=== PATIENT | female | born 1945 | race Caucasian/White ===

== ENCOUNTER 2018-09-12 11:47 | Day surgery (SDC) | payer MEDICARE, OTHER, SELFPAY ==
--- NOTE | 2018-09-12 | PATH_ITS ---
[facility] Accession Number: [id number] . 01 Material submitted: . PART A: RIGHT COLON BIOPSY PART B: TRANSVERSE COLON BIOPSY PART C: LEFT COLON BIOPSY PART D: 15CM COLON BIOPSY . 01 Clinical history: . D: RULE OUT ADENOMA . 02 Diagnosis: A, B, C. Biopsies, Right Colon, Transverse Colon, and Left Colon: Multiple fragments of normal appearing colon mucosa present in all three specimens. Negative for significant architectural distortion. Negative for significant inflammation, dysplasia and malignancy. . D. Biopsy, Colon at 15 cm: Three fragments of colon mucosa associated with prominent mucosal lymphoid aggregates. Negative for dysplasia and malignancy. [facility]/09/13/2018 . 02 Electronically signed: . Tyler Ortiz MD, Pathologist NPI- [id number] . 01 Gross description: . Received four formalin-filled containers, each labeled with the patient's name: . A. In a container labeled RT colon, are multiple less than 0.1 cm to 0.3 cm portions of tissue, which are filtered, wrapped, and entirely submitted in cassette A. B. In a container labeled transverse col, are three 0.2-0.4 cm portions of tissue, entirely submitted in cassette B. C. In a container labeled LT colon, are multiple 0.1-0.4 cm portions of tissue, which are filtered, wrapped, and entirely submitted in cassette C. D. In a container labeled 15 cm col, are three 0.1-0.3 cm portions of tissue, entirely submitted in cassette D. ([id number]) /FRR . 02 Pathologist provided ICD-10: R19.7 . 02 CPT . 778405, 296387, 192092, 094144 Performed at: 01 [facility] [address] [place] [address], [place], [place] [id number] MD Karthik Arreguin MD Phone: [phone] Performed at: 02 [facility] [address] [address] [place], [place] [id number] MD Griselda Ibrahim MD Phone: [phone]
[2018-09-12 12:38] VITALS: BP 158/91; PULSE 69; RESP 16; TEMP 36.7; O2SAT 97; BMI 28.2
[2018-09-12] MEDS: SODIUM CHLORIDE 0.9% 1,000 ML 42 ML IV (12:55)
--- NOTE | 2018-09-12 13:00 | PM.HP.1 ---
History of Present Illness Date Patient Seen: 09/12/18 Time Patient Seen: 13:00 Chief complaint: [id number] COLONOSCOPY W/POSS BX Narrative: History of ulcerative colitis Patient History Medical History Chronic GERD (Acute) Ulcerative colitis (Acute) Family & Social History Social History: household members spouse Meds Home Medications Medication Instructions Recorded Confirmed Type conjugated estrogens [Premarin] 0.45 mg PO DAILY 09/12/18 09/12/18 History mesalamine [Lialda] 4.8 mg PO 09/12/18 History omeprazole 20 mg PO DAILY 09/12/18 09/12/18 History Allergies Allergy/AdvReac Type Severity Reaction Status Date / Time Penicillins Allergy Mild Verified 09/12/18 12:56 Exam Vital Signs (past 8 hours): - 09/12/18 12:38 Temperature 98.1 F Pulse Rate 69 Respiratory Rate 16 Blood Pressure 158/91 H Pulse Oximetry 97 Oxygen Delivery Method Room Air Narrative Exam Narrative: Oropharynx free of lesions Chest clear to auscultation percussion Cardiac exam reveals no S3 or murmur Assessment & Plan Plan: Assessment/Plan Narrative: History of ulcerative colitis need for follow-up colonoscopy with surveillance biopsies. Risks, benefits, alternatives have been explained.
--- NOTE | 2018-09-12 13:02 | P.OP.ENDO_ITS ---
Operative Date/Time/Diagnoses Date of procedure: 09/12/18 Time of procedure: 13:02 Pre-op diagnosis: See indication and findings Procedure & Clinicians Study performed: Colonoscopy Same procedure as scheduled: Yes Indications: History of ulcerative colitis Surgeon: Cheyenne Wolff Procedure Notes Procedure in detail: After informed consent was obtained the patient was placed in left lateral decubitus position. The video colonoscope was introduced the rectum slowly advanced to the cecum. On slow withdrawal mucosa was carefully examined. Preparation was good. The scope was removed. The patient tolerated procedure well. Blood loss none Complications none Sedation Total sedation time 26 min Findings 1. Generally normal colonic mucosa. Biopsies taken 2/10 cm and placed in right , transverse, and left colon bottles. This is to rule out dysplasia. 2. Extensive sigmoid diverticulosis with some degree of colonic narrowing 3. Mildly nodular mucosa in almost polypoid form no greater than 1 cm at 15 cm. This was biopsied x2 with Jumbo biopsy forceps and mostly resected. I expect this will probably not be an adenomatous polyp. 4. Tattoo present at the patent flexure from previously removed large polyp. We will be in touch with her regarding her biopsies but generally should have follow-up colonoscopy in 2-3 years
[2018-09-12] MEDS: fentaNYL 250 MCG/5 ML INJ IV (13:54)
[2018-09-12] MEDS: MIDAZOLAM 5 MG/5 ML VIAL IV (13:54)
[2018-09-12 14:02] VITALS: BP 124/70; PULSE 61; RESP 16; TEMP 36.4; O2SAT 95
[2018-09-12 14:08] VITALS: BP 127/78; PULSE 72; RESP 20; TEMP 36.5; O2SAT 94
[2018-09-12 14:26] VITALS: BP 125/75; PULSE 65; RESP 15; TEMP 36.4; O2SAT 95
[2018-09-12 14:30] VITALS: BP 117/72; PULSE 68; RESP 16; TEMP 36.6; O2SAT 97
== END 2018-09-12 15:17 | disposition home or self-care (01) ==
PROVIDERS: Visit Provider Internal Medicine Gastroenterology
PROC: 0DJD8ZZ Inspection of Lower Intestinal Tract, Via Natural or Artificial Opening Endoscopic (ICD-10-PCS; CPT 45378; principal; 2018-09-12 13:30)
DX: Z87.19 Personal history of other diseases of the digestive system (principal); K57.30 Diverticulosis of large intestine without perforation or abscess without bleeding; Z86.010 Personal history of colon polyps; K21.9 Gastro-esophageal reflux disease without esophagitis
CPT/HCPCS: 45380; 88305; J2250; J3010

== ENCOUNTER 2019-07-31 10:24 | Day surgery (SDC) | payer MEDICARE, OTHER, SELFPAY ==
[2019-07-31] VITALS (8 sets, daily range): BP systolic 113–143; BP diastolic 75–87; PULSE 68–74; RESP 17–22; TEMP 36.3–36.4; O2SAT 92–99; BMI 27.4
[2019-07-31] MEDS: SODIUM CHLORIDE 0.9% 1,000 ML 42 ML IV (11:04)
--- NOTE | 2019-07-31 11:04 | PM.HP.1 ---
History of Present Illness History of Present Illness Date Patient Seen: 07/31/19 Time Patient Seen: 11:04 Chief complaint: [id number] Narrative: Worsening and uncontrolled GE reflux Patient History Medical History (Updated 07/31/19 @ 11:05 by Cheyenne Wolff MD) Chronic GERD (Acute) Ulcerative colitis (Acute) Family & Social History Social History: household members spouse Meds Home Medications and Allergies Home Medications Medication Instructions Recorded Confirmed Type conjugated estrogens [Premarin] 0.45 mg PO DAILY 09/12/18 09/12/18 History mesalamine [Lialda] 4.8 mg PO 09/12/18 History omeprazole 20 mg PO DAILY 09/12/18 09/12/18 History Allergies Allergy/AdvReac Type Severity Reaction Status Date / Time Penicillins Allergy Mild Verified 07/31/19 10:57 Exam Vital Signs (past 8 hours): - 07/31/19 10:49 Temperature 97.3 F L Pulse Rate 73 Respiratory Rate 20 Blood Pressure 143/87 H Pulse Oximetry 99 Oxygen Delivery Method Room Air Narrative Exam Narrative: Oropharynx free of lesions Chest clear to auscultation percussion Cardiac exam reveals no S3 or murmur Assessment & Plan Assessment & Plan narrative: Worsening and uncontrolled GE reflux. Rule out neoplasia Risks, benefits, alternatives have been explained.
--- NOTE | 2019-07-31 11:06 | PM.OP.ENDO ---
Operative Date/Time/Diagnoses Date of procedure: 07/31/19 Time of procedure: 11:06 Pre-op diagnosis: See indication and findings Procedure & Clinicians Study performed: EGD Same procedure as scheduled: Yes Indications: Worsening GE reflux Surgeon: Cheyenne Wolff Procedure Notes Procedure in detail: After informed consent was obtained the patient was placed in left lateral decubitus position. The video upper scope was placed into the oropharynx with the patient's health swallowed into the esophagus. The esophagus, stomach, and duodenum were carefully examined. On withdrawal, retroflexed view the GE junction was performed. The scope was removed. The patient tolerated procedure well. Blood loss none Complications none Sedation Total sedation time 10 minutes Versed 6 mg fentanyl 100 mg IV titration Findings 1. Normal esophagus 2. Normal stomach 3. Normal duodenum Iln has had worsened symptoms with no esophagitis and nothing more worrisome. We will discuss her being on the lowest dose possible that controls her period moving away from PPIs to H2 blockers would be preferable.
[2019-07-31] MEDS: MIDAZOLAM 5 MG/5 ML VIAL IV (11:46)
[2019-07-31] MEDS: fentaNYL 250 MCG/5 ML INJ IV (11:46)
--- NOTE | 2019-07-31 13:12 | SUR.PHASEII ---
reviewed procedure notes with pt. VSS, tolerated liquid intake, escorted to main entrance by volunteer via [facility] in stable condition
== END 2019-07-31 13:12 | disposition home or self-care (01) ==
PROVIDERS: Visit Provider Internal Medicine Gastroenterology
PROC: 0DJ08ZZ Inspection of Upper Intestinal Tract, Via Natural or Artificial Opening Endoscopic (ICD-10-PCS; CPT 43235; principal; 2019-07-31 11:30)
DX: K21.9 Gastro-esophageal reflux disease without esophagitis (principal)
CPT/HCPCS: 43235; J2250; J3010

== ENCOUNTER → 2022-07-26 11:08 | Outpatient (CLI) | payer MEDICARE, SELFPAY ==
[2022-07-26 12:20] LABS: COVID19 -Nasal RAPID Negative (Negative)
== END ==
PROVIDERS: PCP Internal Medicine; Visit Provider Surgery
DX: Z20.822 Contact with and (suspected) exposure to COVID-19 (principal); Z01.812 Encounter for preprocedural laboratory examination
CPT/HCPCS: 87635; C9803

== ENCOUNTER 2022-07-27 12:27 | Day surgery (SDC) | payer MEDICARE, OTHER, SELFPAY ==
--- NOTE | 2022-07-27 | PATH_ITS ---
[facility] Accession Number: [id number] No. of containers..03 Tissue . 01 Material submitted: . PART A: colon - RIGHT COLON BIOPSIES PART B: colon - TRANSVERSE COLON BIOPSIES PART C: colon - LEFT COLON BIOPSIES . 01 Diagnosis: A-B: Right Colon, Transverse Colon, Biopsies: Colonic mucosa with no significant diagnostic abnormality. Negative for active inflammation, granulomas, dysplasia, and malignancy. . C. Left Colon, Biopsies: Mild distortion of the crypt architecture without active inflammation, consistent with quiescent colitis. Negative for granulomas, dysplasia, and malignancy. [facility] 07/29/2022 1557 Local . 01 Electronically signed: . Griselda Ibrahim MD, Pathologist NPI- [id number] . 01 Gross description: . Part A: RIGHT COLON BIOPSIES: Received in formalin are 3 fragment(s) of [place], soft tissue measuring 0.2 x 0.1 x 0.1 cm to 0.2 x 0.1 x 0.1 cm submitted entirely in 1 cassette(s) Part B: TRANSVERSE COLON BIOPSIES: Received in formalin are 3 fragment(s) of [place], soft tissue measuring 0.4 x 0.1 x 0.1 cm to 0.2 x 0.2 x 0.1 cm submitted entirely in 1 cassette(s) Part C: LEFT COLON BIOPSIES: Received in formalin are multiple fragment(s) of [place], soft tissue measuring 1.0 x 0.3 x 0.1 cm in aggregate submitted entirely in 1 cassette(s) /CPE 07/28/2022 0757 Local . 01 Pathologist provided ICD-10: K51.90 . 01 CPT . 793371, 048020, 150304 Specimen Comment: A courtesy copy of this report has been sent to [phone] Specimen Comment: [id number] Performed at: 01 [facility] [address], [place], [place] [id number] MD Karthik Arreguin MD Phone: [phone]
--- NOTE | 2022-07-27 12:53 | PM.HP.1 ---
History of Present Illness History of Present Illness Date Patient Seen: 07/27/22 Chief complaint: DX COLONOSCOPY Narrative: History of adenomatous colon polyps and history of ulcerative colitis. Need for follow-up colonoscopy Patient History Medical History (Updated 07/31/19 @ 11:05 by Cheyenne Wolff MD) Chronic GERD Ulcerative colitis Family & Social History Social History: household members spouse Meds Home Medications and Allergies Home Medications Medication Instructions Recorded Confirmed Type conjugated estrogens 0.45 mg 0.45 mg PO DAILY 09/12/18 07/31/19 History tablet (Premarin) mesalamine 1.2 gram tablet,delayed 4.8 mg PO DAILY 09/12/18 07/31/19 History release (Lialda) omeprazole 20 mg capsule,delayed 40 mg PO DAILY 09/12/18 07/31/19 History release Vitamin D3 1 tab PO DAILY 07/31/19 07/31/19 History cetirizine 10 mg capsule (Zyrtec) 20 mg PO BID 07/31/19 07/31/19 History dextromethorphan-guaifenesin 30 30 - 600 tab PO PRN PRN Cough 07/31/19 07/31/19 History mg-600 mg tablet extended [id number] hr (Mucinex DM) fluticasone propionate 50 2 spray intranasal DAILY 07/31/19 07/31/19 History mcg/actuation nasal spray,suspension Allergies Allergy/AdvReac Type Severity Reaction Status Date / Time Penicillins Allergy Mild Verified 07/31/19 10:57 Exam Narrative Exam Narrative: Oropharynx free of lesions Chest clear to auscultation and percussion Cardiac exam reveals no S3 or murmur Assessment & Plan Assessment & Plan narrative: History of adenomatous colon polyps and ulcerative colitis. Need for follow-up colonoscopy with surveillance biopsies. Risks, benefits, alternatives have been explained. Time Spent With Patient Critical Care time: I spent a total of [] minutes of critical care time on this patient's care today; this time is exclusive of procedural time.
--- NOTE | 2022-07-27 12:54 | P.OP.COLON_ITS ---
Operative Date/Time/Diagnoses Date of procedure: 07/27/22 Pre-op diagnosis: See indication and findings Procedure & Clinicians Study performed: Colonoscopy Indications: History of adenomatous colon polyps and ulcerative colitis Surgeon: Cheyenne Wolff Procedure Notes Procedure in detail: After informed consent was obtained the patient was placed in left lateral decubitus position. The video colonoscope was introduced the rectum slowly advanced to the cecum. On slow withdrawal mucosa was carefully examined. The scope was removed. The patient tolerated procedure well. Blood loss none Complications none Sedation propofol Findings 1. Mild evidence of previous inflammation with some disorder and neova scularization of the blood vessels. This was present throughout the colon. Biopsies were taken to every 10 cm and placed in bottles corresponding to right transverse and left colon. 2. Previous tattoo noted in the transverse colon 3. Otherwise negative colonoscopy to cecum Patient will follow up with Dr. Morgan as needed. Polyps were seen. Still she should have follow-up colonoscopy in 2 years.
[2022-07-27 13:03] VITALS: BP 143/77; PULSE 73; RESP 16; TEMP 37.5; O2SAT 96; BMI 28.8
[2022-07-27] MEDS: LACTATED RINGERS 1,000 ML 42 ML IV (13:22)
[2022-07-27 13:55] VITALS: BP 123/75; PULSE 69; RESP 24; O2SAT 97
[2022-07-27 14:00] VITALS: BP 121/70; PULSE 69; RESP 24; O2SAT 96
[2022-07-27 14:07] VITALS: BP 150/75; PULSE 67; RESP 19; O2SAT 98
[2022-07-27 14:11] VITALS: BP 151/78; PULSE 63; RESP 19; TEMP 35.9; O2SAT 99
[2022-07-27 14:13] VITALS: BP 146/80; PULSE 63; RESP 16; O2SAT 97
== END 2022-07-27 14:25 | disposition home or self-care (01) ==
PROVIDERS: PCP Internal Medicine; Referring Provider Internal Medicine Gastroenterology; Visit Provider Internal Medicine Gastroenterology
PROC: 0DJD8ZZ Inspection of Lower Intestinal Tract, Via Natural or Artificial Opening Endoscopic (ICD-10-PCS; CPT 45378; principal; 2022-07-27 13:30)
DX: K51.90 Ulcerative colitis, unspecified, without complications (principal); Z86.010 Personal history of colon polyps; Z09 Encounter for follow-up examination after completed treatment for conditions other than malignant neoplasm
CPT/HCPCS: 45380; J2704

== ENCOUNTER 2024-11-13 07:52 | Day surgery (SDC) | payer MEDICARE, BC, SELFPAY ==
--- NOTE | 2024-11-13 | PATH_ITS ---
[place] Accession Number: [id number] No. of containers..03 Tissue . 01 Material submitted: . PART A: colon - RIGHT TRANSVERSE PART B: colon - TRANSVERSE PART C: colon - LEFT TRANSVERSE . 01 Diagnosis: Part A: RIGHT TRANSVERSE: Colonic mucosa with no diagnostic alterations. No active inflammation, granulomas, dysplasia, or malignancy identified. . Part B: TRANSVERSE: Colonic mucosa with no diagnostic alterations. No active inflammation, granulomas, dysplasia, or malignancy identified. . Part C: LEFT TRANSVERSE : Colonic mucosa with no diagnostic alterations. No active inflammation, granulomas, dysplasia, or malignancy identified. [facility] 11/15/2024 1448 Local . 01 Electronically signed: . Karthik Arreguin MD, Pathologist NPI- [id number] . 01 Gross description: . A. Received in formalin with two patient identifiers and right transverse, are five [place] soft tissue fragments 0.2 to 0.4 cm in greatest dimension. Submitted in cassette A1. . B. Received in formalin with two patient identifiers and transverse colon biopsy, are four [place] soft tissue fragments 0.2 to 0.4 cm in greatest dimension. Submitted in cassette B1. . C. Received in formalin with two patient identifiers and left transverse colon biopsy, are six [place] soft tissue fragments 0.3 to 0.4 cm in greatest dimension. Submitted in cassette C1. ([id number]) /[facility] 11/15/2024 1448 Local . 01 Pathologist provided ICD-10: K51.90 . 01 CPT . 739623, 085051, 925525 Specimen Comment: A courtesy copy of this report has been sent to [phone] Performed at: [address] [id number] MD Karthik Arreguin MD Phone: [phone]
[2024-11-13 09:02] VITALS: BP 128/85; PULSE 66; RESP 16; TEMP 36.9; O2SAT 98
[2024-11-13] MEDS: SODIUM CHLORIDE 0.9% 1,000 ML 100 ML IV (09:06)
--- NOTE | 2024-11-13 09:09 | P.HP_ITS ---
History of Present Illness History of Present Illness Chief complaint: Dx Colonoscopy w/poss bx Narrative: History of ulcerative colitis with need for 2 year follow-up surveillance biopsies [facility] Medical History Asthma Chronic GERD Ulcerative colitis Social History household members: spouse Smoking Status: Former smoker alcohol intake: current Meds Home Medications and Allergies Home Medications Medication Instructions Recorded Confirmed Type mesalamine 1.2 gram tablet,delayed 4.8 mg PO DAILY 09/12/18 11/13/24 History release (Lialda) omeprazole 20 mg capsule,delayed 40 mg PO DAILY 09/12/18 11/13/24 History release Vitamin D3 1 tab PO DAILY 07/31/19 11/13/24 History cetirizine 10 mg capsule (Zyrtec) 20 mg PO BID 07/31/19 11/13/24 History fluticasone propionate 50 2 spray intranasal DAILY 07/31/19 11/13/24 History mcg/actuation nasal spray,suspension exemestane 25 mg tablet 25 mg PO DAILY 11/13/24 11/13/24 History Allergies Allergy/AdvReac Type Severity Reaction Status Date / Time Penicillins Allergy Severe Anaphylaxis Verified 11/13/24 08:58 Exam Vital Signs (past 8 hours): - 11/13/24 09:02 Temperature 98.5 F Pulse Rate 66 Respiratory Rate 16 Blood Pressure 128/85 Pulse Oximetry 98 Oxygen Delivery Method Room Air Oxygen Delivery Method Room Air Narrative Exam Narrative: Oropharynx free of lesions Chest clear to auscultation percussion Cardiac exam reveals no S3 or murmur Assessment & Plan Assessment & Plan narrative: History of ulcerative colitis with need for 2 year follow-up surveillance biopsies. Risks, benefits, alternatives have been explained. Time-Based Coding :: [TOTAL MINUTES] spent with patient and on the chart (including review of chart, obtaining history, exam, reviewing outside data, placing orders, documenting exam and treatment plan, and counseling patient) on [DATE].
--- NOTE | 2024-11-13 09:10 | PM.OP.COLON ---
Operative Date/Time/Diagnoses Date of procedure: 11/13/24 Pre-op diagnosis: See indication and findings Procedure & Clinicians Study performed: Colonoscopy with biopsy Indications: History of ulcerative colitis with need for 2 year follow-up with biopsies Surgeon: Cheyenne Wolff Procedure Notes Procedure in detail: After informed consent was obtained the patient was placed in the left lateral decubitus position. The video colonoscope was placed in the rectum slowly advanced cecum. Preparation was good. On slow withdrawal mucosa was carefully examined. The scope was removed. The patient tolerated procedure well. Blood loss none Complications none Sedation mac Findings 1. Severe sigmoid diverticulosis 2. Otherwise normal colonoscopy to cecum. Two biopsies taken every 10 cm and into right, transverse, and left colon bottles. Will be in touch regarding biopsies. She will need follow-up colonoscopy in 2 years.
[2024-11-13 09:47] VITALS: BP 112/65; PULSE 66; RESP 22; TEMP 36.4; O2SAT 96
[2024-11-13 09:52] VITALS: BP 119/63; PULSE 71; RESP 16; O2SAT 98
[2024-11-13 09:57] VITALS: BP 125/70; PULSE 67; RESP 16; O2SAT 98
--- NOTE | 2024-11-13 10:00 | EKG_ITS ---
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
[2024-11-13 10:02] VITALS: BP 137/72; PULSE 65; RESP 16; TEMP 36.8; O2SAT 99
[2024-11-13 10:10] VITALS: BP 150/74; PULSE 66; RESP 12; TEMP 36.7; O2SAT 100
== END 2024-11-13 10:32 | disposition home or self-care (01) ==
PROVIDERS: PCP Nurse Practitioner Family; Referring Provider Nurse Practitioner Family; Visit Provider Internal Medicine Gastroenterology
PROC: 0DJD8ZZ Inspection of Lower Intestinal Tract, Via Natural or Artificial Opening Endoscopic (ICD-10-PCS; CPT 45378; principal; 2024-11-13 10:00)
DX: Z09 Encounter for follow-up examination after completed treatment for conditions other than malignant neoplasm (principal); Z87.891 Personal history of nicotine dependence; Z87.19 Personal history of other diseases of the digestive system; K57.30 Diverticulosis of large intestine without perforation or abscess without bleeding
CPT/HCPCS: 45380; 93005